=== PATIENT | female | born 1965 | race Caucasian/White ===

== ENCOUNTER 2017-02-26 23:57 | Emergency (ER) | payer OTHER ==
[~2017-02-26] VITALS: Ht 170.2 cm; Wt 104.3 kg
[2017-02-27 00:05] VITALS: BP 152/56
[2017-02-27] MEDS ORDERED: FLUT9.9S NS (00:18)
[2017-02-27] MEDS ORDERED: AZIT250T6 PO (00:19)
--- NOTE | 2017-02-27 00:20 | PHYS DOC ---
Adult General Chief Complaint Chief Complaint: COUGH HPI HPI Patient is a 51 year old presents to emergency department with a 14 day history of sinus congestion and cough. She states that the symptoms seem to be worsening over the last 3 days. She is using [id number] Sonal without relief of symptoms. Review of Systems Review of Systems Constitutional: Denies fever or chills [] Eyes: Denies change in visual acuity, redness, or eye pain [] HENT: Eyes are congestion, sore throat. Respiratory: Cough productive of yellow sputum Cardiovascular: No additional information not addressed in HPI [] GI: Denies abdominal pain, nausea, vomiting, bloody stools or diarrhea [] : Denies dysuria or hematuria [] Musculoskeletal: Denies back pain or joint pain [] Integument: Denies rash or skin lesions [] Neurologic: Denies headache, focal weakness or sensory changes [] Endocrine: Denies polyuria or polydipsia [] Physical Exam Physical Exam Constitutional: Well developed, well nourished, no acute distress, non-toxic appearance. [] HENT: Normocephalic, atraumatic, bilateral tympanic membranes pearly liu with effusion. Posterior pharynx injected. Postnasal drip present Eyes: PERRLA, EOMI, conjunctiva normal, no discharge. [] Neck: Normal range of motion, no tenderness, supple, no stridor. [] Cardiovascular:Heart rate regular rhythm, no murmur [] Lungs & Thorax: Bilateral breath sounds clear to auscultation [] Skin: Warm, dry, no erythema, no rash. [] Neurologic: Alert and oriented X 3, normal motor function, normal sensory function, no focal deficits noted. [] EKG EKG [] Radiology/Procedures Radiology/Procedures [] Course & Med Decision Making Course & Med Decision Making Pertinent Labs and Imaging studies reviewed. (See chart for details) [] Dragon Disclaimer Dragon Disclaimer This electronic medical record was generated, in whole or in part, using a voice recognition dictation system. Departure Departure Impression: Primary Impression: URI (upper respiratory infection) Disposition: 01 HOME, SELF-CARE Condition: STABLE Patient Instructions: Upper Respiratory Infection, Adult Scripts Azithromycin (AZITHROMYCIN TABLET) 250 Mg Tablet 1 TAB PO DAILY, #6 TAB Take 2 tablets by mouth on day 1 and one tablet by mouth on days 2 through 5 Prov: BIB STERLING APRN 02/27/17 Fluticasone Propionate (Flonase Allergy Relief) 9.9 Ml [place].susp 2 SPRAYS NS DAILY, #1 BOTTLE Prov: BIB STERLING APRN 02/27/17 BIB STERLING APRN Feb 27, 2017 00:20
== END 2017-02-27 00:27 | disposition home or self-care (01) ==
LOC: ER 23:57
DX: J06.9 Acute upper respiratory infection, unspecified (principal)
CPT/HCPCS: 99283